=== PATIENT | male | born 1990 | race Caucasian/White ===

== ENCOUNTER 2017-09-27 16:22 | Emergency (ER) | payer MEDICARE, OTHER ==
[2017-09-27 16:34] VITALS: BP 134/87; PULSE 94; RESP 16; TEMP 98; O2SAT 97
--- NOTE | 2017-09-27 17:42 | ED PDOC ---
HPI: General Adult Time Seen by Provider: 09/27/17 16:41 Chief Complaint (Nursing): Flu-like Symptoms Chief Complaint (Provider): Flu-like symptoms History Per: Patient History/Exam Limitations: no limitations Onset/Duration Of Symptoms: Days (x4) Current Symptoms Are (Timing): Still Present Severity: Mild Pain Scale Rating Of: 5 Additional Complaint(s): Bennett Mahoney is a 27 year old male, with a past medical history of cerebral palsy, who presents to the emergency department complaining of productive cough with yellow sputum, sore throat, congestion and swollen right eye onset for 4 days. Patient states the symptoms are worst at night. Patient recently traveled from [place] and reports taking [id number] medications to handle the symptoms. However, symptoms have worsen after he came back from [place]. He denies any fever, chest pain, and shortness of breath. No further medical complaints. PMD: Enrico Mariano Past Medical History Reviewed: Historical Data, Nursing Documentation, Vital Signs Vital Signs: Last Vital Signs Temp 98 F 09/27/17 16:31 Pulse 94 H 09/27/17 16:31 Resp 16 09/27/17 16:31 BP 134/87 09/27/17 16:31 Pulse Ox 97 09/27/17 18:33 - Surgical History Other surgeries: Harmstring and right wrist surgery - Family History Family History: States: Unknown Family Hx - Social History Current smoker - smoking cessation education provided: No Alcohol: None Drugs: Denies - Home Medications Home Medications: Ambulatory Orders Medication Instructions Recorded Amoxicillin/Clavulanate [Augmentin 1 tab PO BID #14 tab 09/27/17 875 MG-125 MG] Erythromycin 0.5% [Erythromycin 3.5 gm OP BID #1 tube 09/27/17 0.5% Oint] Methylprednisolone [Medrol Dose 4 mg PO DAILY #21 mg 09/27/17 Pack (21 tabs)] - Allergies Allergies/Adverse Reactions: Allergies Allergy/AdvReac Type Severity Reaction Status Date / Time No Known Allergies Allergy Verified 09/27/17 16:31 Review of Systems ROS Statement: Except As Marked, All Systems Reviewed And Found Negative Constitutional: Negative for: Fever Eyes: Positive for: Eyelid Inflammation (right eye) ENT: Positive for: Nose Congestion, Throat Pain Cardiovascular: Negative for: Chest Pain Respiratory: Positive for: Cough (productive), Sputum (yellow). Negative for: Shortness of Breath Physical Exam - Reviewed Nursing Documentation Reviewed: Yes Vital Signs Reviewed: Yes - Physical Exam Appears: Positive for: Well, Non-toxic, No Acute Distress Head Exam: Positive for: ATRAUMATIC, NORMAL INSPECTION, NORMOCEPHALIC Skin: Positive for: Normal Color, Warm, Dry Eye Exam: Positive for: EOMI, PERRL, Conjunctival injection (mild), Other ( right eye edema. Crusty eyelashes) ENT: Positive for: Normal ENT Inspection Neck: Positive for: Normal, Painless ROM, Supple Cardiovascular/Chest: Positive for: Regular Rate, Rhythm. Negative for: Murmur Respiratory: Positive for: Normal Breath Sounds. Negative for: Respiratory Distress Extremity: Positive for: Normal ROM Neurologic/Psych: Positive for: Alert, Oriented - ECG O2 Sat by Pulse Oximetry: 97 (RA) Pulse Ox Interpretation: Normal Medical Decision Making Medical Decision Making: Initial Impression: Sinusitis, conjunctivitis Initial Plan: Augmentin medrol dose pack Erythromycin Optic ~ Scribe Attestation: Documented by Fareed Alejandro, acting as a scribe for Filomena Villafana PA-C. Provider Scribe Attestation: All medical record entries made by the Scribe were at my direction and personally dictated by me. I have reviewed the chart and agree that the record accurately reflects my personal performance of the history, physical exam, medical decision making, and the department course for this patient. I have also personally directed, reviewed, and agree with the discharge instructions and disposition. Disposition - Clinical Impression Clinical Impression: Sinusitis, Conjunctivitis - Patient ED Disposition Is Patient to be Admitted: No - Disposition Disposition: Routine/Home Disposition Time: 18:43 Condition: STABLE Prescriptions: Amoxicillin/Clavulanate [Augmentin 875 MG-125 MG] 1 tab PO BID #14 tab Erythromycin 0.5% [Erythromycin 0.5% Oint] 3.5 gm OP BID #1 tube Methylprednisolone [Medrol Dose Pack (21 tabs)] 4 mg PO DAILY #21 mg Instructions: Sinusitis (ED), Conjunctivitis (ED) Forms: [employer] (Honduran)
== END 2017-09-27 18:48 | disposition home or self-care (01) ==
LOC: H.ER 16:22
DX: J32.9 Chronic sinusitis, unspecified (principal); G80.9 Cerebral palsy, unspecified; H10.9 Unspecified conjunctivitis

== ENCOUNTER 2017-11-06 13:27 | Emergency (ER) | payer MEDICARE, OTHER ==
[2017-11-06 13:41] VITALS: BP 142/87; RESP 16; TEMP 99.2; O2SAT 99
--- NOTE | 2017-11-06 14:27 | ED PDOC ---
HPI: General Adult Time Seen by Provider: 11/06/17 14:04 Chief Complaint (Nursing): Cough, Cold, Congestion Chief Complaint (Provider): [place], rhinorrhea History Per: Patient Onset/Duration Of Symptoms: Days (x 4-5) Current Symptoms Are (Timing): Still Present Additional Complaint(s): Bennett is a 27 year old male, with a past medical history of Cerebral Palsy, who presents to the emergency department complaining of coughing and nasal congestion for 4-5 days. Patient reports taking Mucinex at home, but states he is getting worse. Patient report feeling fever with body aches. PMD: Enrico Mariano Past Medical History Reviewed: Historical Data, Nursing Documentation, Vital Signs Vital Signs: Last Vital Signs Temp 99.2 F 11/06/17 13:39 Pulse 112 H 11/06/17 13:39 Resp 16 11/06/17 13:39 BP 142/87 11/06/17 13:39 Pulse Ox 99 11/06/17 14:29 - Medical History Other PMH: Cerebral Palsy - Surgical History Surgical History: No Surg Hx - Family History Family History: States: Unknown Family Hx - Living Arrangements Living Arrangements: With Family - Social History Current smoker - smoking cessation education provided: No Alcohol: None Drugs: Denies - Home Medications Home Medications: Ambulatory Orders Medication Instructions Recorded Amoxicillin/Clavulanate [Augmentin 1 tab PO BID #14 tab 09/27/17 875 MG-125 MG] Erythromycin 0.5% [Erythromycin 3.5 gm OP BID #1 tube 09/27/17 0.5% Oint] Methylprednisolone [Medrol Dose 4 mg PO DAILY #21 mg 09/27/17 Pack (21 tabs)] Azithromycin [Zithromax] 250 mg PO DAILY #6 tab 11/06/17 - Allergies Allergies/Adverse Reactions: Allergies Allergy/AdvReac Type Severity Reaction Status Date / Time No Known Allergies Allergy Verified 11/06/17 13:39 Review of Systems ROS Statement: Except As Marked, All Systems Reviewed And Found Negative Constitutional: Positive for: Fever, Other (Body aches) ENT: Positive for: Nose Congestion Respiratory: Positive for: Cough Physical Exam - Reviewed Nursing Documentation Reviewed: Yes Vital Signs Reviewed: Yes - Physical Exam Appears: Positive for: Well, Non-toxic Head Exam: Positive for: ATRAUMATIC, NORMAL INSPECTION, NORMOCEPHALIC Skin: Positive for: Normal Color. Negative for: Warm Eye Exam: Positive for: Normal appearance ENT: Positive for: Normal ENT Inspection Neck: Positive for: Normal Cardiovascular/Chest: Positive for: Regular Rate, Rhythm Respiratory: Positive for: Normal Breath Sounds. Negative for: Accessory Muscle Use, Respiratory Distress Back: Positive for: Normal Inspection Extremity: Positive for: Normal ROM Neurologic/Psych: Positive for: Alert, Oriented (x 3) - ECG O2 Sat by Pulse Oximetry: 99 (RA) Pulse Ox Interpretation: Normal Medical Decision Making Medical Decision Making: Upon provider evaluation patient is medically stable, and requires no further treatment in the ED at this time. Patient will be discharged with Rx for Zithromax. Counseling was provided and all questions were answered regarding diagnosis. There is agreement to discharge plan. Return if symptoms persist or worsen. Scribe Attestation: Documented by Hernan Vick, acting as a scribe for Gabriela Guo PA-C Provider Scribe Attestation: All medical record entries made by the Scribe were at my direction and personally dictated by me. I have reviewed the chart and agree that the record accurately reflects my personal performance of the history, physical exam, medical decision making, and the department course for this patient. I have also personally directed, reviewed, and agree with the discharge instructions and disposition. Disposition - Clinical Impression Clinical Impression: Upper respiratory infection - Patient ED Disposition Is Patient to be Admitted: No - Disposition Disposition: Routine/Home Disposition Time: 14:22 Condition: STABLE Prescriptions: Azithromycin [Zithromax] 250 mg PO DAILY #6 tab Instructions: Upper Respiratory Infection (ED) Forms: [employer] (Malay)
[2017-11-06 14:49] VITALS: PULSE 99
== END 2017-11-06 14:54 | disposition home or self-care (01) ==
LOC: H.ER 13:27
DX: J06.9 Acute upper respiratory infection, unspecified (principal); G80.9 Cerebral palsy, unspecified